=== PATIENT | male | born 1975 | race African-American/Black ===

== ENCOUNTER 2022-08-12 19:20 | Emergency (ER) | payer MEDICAID ==
[~2022-08-12] VITALS: Ht 195.6 cm; Wt 124.7 kg
[2022-08-12] MEDS ORDERED: CLONIDINE HCL 0.2 MG TABLET PO ONE (20:30)
[2022-08-12] MEDS ORDERED: CLONIDINE HCL 0.2 MG TABLET ONE (20:36)
[2022-08-12] MEDS ORDERED: CLONIDINE HCL 0.1 MG TABLET ONE ×2 (20:36→22:10)
[2022-08-12 20:43] LABS: HEMATOCRIT 43.4 % (36.7-47.1); MEAN CORPUSCULAR HEMOGLOBIN 27.9 uug (23.8-33.4); PLATELET COUNT (AUTO) 236 K/uL (152-348)
[2022-08-12 20:45] LABS: CARBON DIOXIDE 30 mmol/L (21-32); CHLORIDE 103 mmol/L (98-107); CREATININE 1.1 mg/dL (0.6-1.3); GLUCOSE 110 mg/dL (74-106); POTASSIUM 3.9 mmol/L (3.5-5.1); UREA NITROGEN, BLOOD 16 mg/dL (7-18)
[2022-08-12 20:51] LABS: ALANINE AMINOTRANSFERASE 25 U/L (16-63); ALKALINE PHOSPHATASE 99 U/L (50-136); ASPARTATE AMINOTRANSFERASE 15 U/L (15-37); BILIRUBIN,DIRECT < 0.1 mg/dL (0.0-0.2); BILIRUBIN,TOTAL 0.3 mg/dL (0.2-1.0); TOTAL PROTEIN, SERUM 8.4 g/dL (6.4-8.2)
--- NOTE | 2022-08-12 21:08 | NUR ---
Urine sample sent to the lab.
[2022-08-12 21:20] LABS: *BILIRUBIN,URIN NEGATIVE (NEGATIVE); *CLARITY,URINE CLEAR (CLEAR); *COLOR,URINE YELLOW (YELLOW); *KETONES,URINE NEGATIVE (NEGATIVE); LEUKOCYTE ESTERASE ,URINE NEGATIVE (NEGATIVE); NITRITE, URINE NEGATIVE (NEGATIVE); UGLUCOSE NEGATIVE (NEGATIVE)
[2022-08-12 21:24] LABS: *BLOOD, URINE TRACE (NEGATIVE)
[2022-08-12 21:43] LABS: BACTERIA,URINE NONE SEEN /HPF (NONE SEEN); RBC,URINE 0-3 /HPF (0-3); SQUAMOUS EPITHELIAL CELL,UR FEW /HPF (NONE SEEN); WBC,URINE 0-3 /HPF (0-3)
[2022-08-12] MEDS ORDERED: CLONIDINE HCL 0.1 MG TABLET PO ONE (22:15)
[2022-08-12] MEDS ORDERED: hydrALAZINE HCL IV 20 MG in IV NORMAL SALINE 50 ML IV SCH (22:15)
[2022-08-12] MEDS ORDERED: CLON0.3T PO (23:54)
[2022-08-12] MEDS ORDERED: BLOO-1730 MC (23:54)
[2022-08-12] MEDS ORDERED: HYDR-894 PO (23:54)
--- NOTE | 2022-08-13 00:18 | NUR ---
Patient discharged to home in stable condition. A/O x4. NAD noted. Ambulatory with a steady gait. All belongings with the patient. Written and verbal after care instructions given. Patient verbalizes understanding of instructions. Stressed follow up or return to ER for worsening s/s.
[2022-08-13 00:46] VITALS: BP 151/104
== END 2022-08-13 00:18 | disposition home or self-care (01) ==
LOC: ER 19:20
DX: I11.9 Hypertensive heart disease without heart failure (principal); R94.31 Abnormal electrocardiogram [ECG] [EKG]; E88.81 Metabolic syndrome and other insulin resistance
CPT/HCPCS: 36415; 71045; 83735; 85025; 93005; A4663

== ENCOUNTER 2024-06-09 21:11 | Emergency (ER) | payer MEDICAID ==
[~2024-06-09] VITALS: Ht 195.6 cm; Wt 119.7 kg
[~2024-06-09 21:11] MED LIST: BLOO-1730 MC; CLON0.3T PO; HYDR-894 PO
[2024-06-09 21:13] VITALS: O2SAT 97
== END 2024-06-09 22:15 | disposition home or self-care (01) ==
LOC: ER 21:15
DX: T16.2XXA Foreign body in left ear, initial encounter (principal); Z79.899 Other long term (current) drug therapy; X58.XXXA Exposure to other specified factors, initial encounter; Y93.89 Activity, other specified; Y92.89 Other specified places as the place of occurrence of the external cause; Y99.8 Other external cause status
CPT/HCPCS: A4606; A4663